=== PATIENT | female | born 1960 | race Caucasian/White ===

== ENCOUNTER 2017-06-19 22:22 | Inpatient (IN) | payer OTHER ==
[2017-06-19 22:54] LABS: ABNORMAL IP MESSAGE 1; HEMATOCRIT 36.1 % (37.0-47.0); HEMOGLOBIN 11.6 g/dl (12.0-16.0); MEAN CORPUSCULAR HEMOGLOBIN 30.9 pg (29.0-33.0); MEAN CORPUSCULAR HGB CONC 32.1 g/dl (32.0-37.0); MEAN PLATELET VOLUME 9.4 fl (7.4-10.4); PLATELET COUNT 335 10^3/UL (140-415); RED BLOOD COUNT 3.76 10^6/ul (4.20-5.40); RED CELL DISTRIBUTION WIDTH 14.1 % (11.5-14.5)
[2017-06-19 22:58] LABS: ADD MAN DIFF? YES; POSITIVE DIFF @See below
[2017-06-19] MEDS: SOD CHLORIDE 0.9% 2,170 ML IV (23:00)
[2017-06-19 23:29] LABS: AADO2 Arterial 361.9 mmHg (7.0-24.0); Allen Test ACCEPTAB; Arterial Base Excess -6.1 mmol/L (-3.0-3); Arterial Blood Gas Oxygen Sat 99.4 mmHG (95.0-98.0); Arterial COHb 0.3 % (0.0-3.0); Arterial Fraction of Oxyhgb 98.5 % (93.0-99.0); Arterial HCO3 20.7 mmol/L (22.0-26.0); Arterial MetHb 0.6 % (0.0-1.5); Arterial Total Hemglobin 12.3 g/dl (12.0-18.0); MODE VENT - AC; Site Right Brachial
[2017-06-19 23:40] LABS: BAND NEUTROPHILS #M 0.2 10^3/ul (0.0-0.6); BAND NEUTROPHILS % (M) 4 % (0-4); EOSINOPHILS % (M) 1 % (0-7); GIANT THROMBO% (M) 2 % (0-0); LYMPHOCYTES #M 2.2 10^3/ul (0.8-2.9); LYMPHOCYTES % (M) 32 % (15-51); METAMYELOCYTES #M 0.5 10^3/ul (0.0-0.0); METAMYELOCYTES %M 8 % (0-0); MONOCYTE #M 0.7 10^3/ul (0.3-0.9); MONOCYTES % (M) 11 % (0-11); MYELOCYTES #M 0.1 10^3/ul (0.0-0.0); MYELOCYTES % (M) 2 % (0-0); PLATELET ESTIMATE NORMAL; POLYCHROMASIA 3+ (0-0); REACTIVE LYMPHOCYTES #M 0.6 10^3/ul (0.0-0.0); REACTIVE LYMPHOCYTES% (M) 9 % (0-0); SEG NEUT #M 2.3 10^3/ul (1.6-7.5); SEGMENTED NEUTROPHILS (M) % 33 % (39-77); SMUDGE%M 6 % (0-0)
[2017-06-19 23:43] LABS: BASOPHIL # 0.1 10^3/ul (0.0-0.1); BASOPHILS % 1.5 % (0.0-2.0); EOSINOPHILS # 0.1 10^3/ul (0.0-0.5); EOSINOPHILS % 2.3 % (0.0-7.0); LYMPHOCYTES # 2.1 10^3/ul (0.8-2.9); LYMPHOCYTES % 35.2 % (15.0-51.0); MONOCYTE # 0.7 10^3/ul (0.3-0.9); MONOCYTES % 10.9 % (0.0-11.0); NEUTROPHIL # 2.1 10^3/ul (1.6-7.5); NEUTROPHILS % 34.4 % (39.0-77.0)
[2017-06-20 00:05] LABS: ALANINE AMINOTRANSFERASE 26 IU/L (13-69); ALBUMIN 3.5 g/dl (3.3-4.9); ALBUMIN/GLOBULIN RATIO 1.06; ALKALINE PHOSPHATASE 95 IU/L (42-121); ANION GAP 15 (8-16); ASPARTATE AMINO TRANSFERASE 45 IU/L (15-46); BILIRUBIN,INDIRECT 0.1 mg/dl (0-1.1); BILIRUBIN,TOTAL 0.1 mg/dl (0.2-1.3); BLOOD UREA NITROGEN 22 mg/dl (7-20); CALCIUM 8.7 mg/dl (8.4-10.2); CARBON DIOXIDE 26 mmol/L (21-31); CHLORIDE 106 mmol/L (97-110); CREATININE 1.31 mg/dl (0.44-1.00); GLUCOSE 146 mg/dl (70-220); POTASSIUM 4.8 mmol/L (3.5-5.1); SODIUM 142 mmol/L (135-144); TOTAL PROTEIN 6.8 g/dl (6.1-8.1)
[2017-06-20 00:13] LABS: LACTIC ACID 4.6 mmol/L (0.5-2.0)
[2017-06-20 00:17] LABS: TROPONIN-I 0.157 ng/ml (0.00-0.12)
[2017-06-20 00:25] LABS: INR 1.08; PROTIME 14.1 Sec (11.9-14.9); PT RATIO 1.1
[2017-06-20 00:29] LABS: ADD UMIC YES; UR ASCORBIC ACID NEGATIVE (NEGATIVE); UR BACTERIA FEW /HPF (NONE SEEN); UR BILIRUBIN (Dip) NEGATIVE (NEGATIVE); UR BLOOD (Dip) 2+ mg/dL (NEGATIVE); UR CLARITY CLOUDY (CLEAR); UR COLOR YELLOW (YELLOW); UR GLUCOSE (Dip) 1+ mg/dL (NEGATIVE); UR KETONES (Dip) NEGATIVE (NEGATIVE); UR LEUKOCYTE ESTERASE (Dip) NEGATIVE Leu/ul (NEGATIVE); UR NITRITE (Dip) NEGATIVE (NEGATIVE); UR RBC 1 /HPF (0-5); UR SPECIFIC GRAVITY (Dip) 1.012 (1.003-1.030); UR TOTAL PROTEIN (Dip) 2+ mg/dl (NEGATIVE); UR UROBILINOGEN (Dip) NEGATIVE (NEGATIVE); UR WBC 2 /HPF (0-5)
[2017-06-20] MEDS: ASPIRIN 300 MG SUPP PR (00:58)
[2017-06-20] MEDS: ACETAMINOPHEN 650 MG SUPP PR (00:59)
[2017-06-20] MEDS: MEROPENEM 500MG/50 ML (PMX) 50 ML IVPB (00:59)
[2017-06-20] MEDS: VANCOMYCIN 1 GM (PMX) 250 ML IVPB (01:00)
[2017-06-20 01:22] LABS: LACTIC ACID 3.9 mmol/L (0.5-2.0)
[2017-06-20] MEDS ORDERED: IPRATROPIUM (HFA) 12.9 GM INHALER INH ×2 (03:00→06:00)
[2017-06-20] MEDS ORDERED: ALBUTEROL HFA 8 GM INHALER INH ×2 (03:00→06:00)
[2017-06-20] MEDS ORDERED: GLUCAGON 1 MG INJ IM (03:10)
[2017-06-20] MEDS ORDERED: DEXTROSE 50% 50 ML SYRINGE IV (03:10)
[2017-06-20] MEDS ORDERED: GLUCOSE GEL 15 GRAM TUBE PO ×2 (03:10)
[2017-06-20] MEDS ORDERED: GLUCOSE GEL 15 GRAM TUBE BUCCAL (03:10)
[2017-06-20] MEDS: SOD CHLORIDE 0.9% 1,000 ML IV (03:13)
[2017-06-20] MEDS ORDERED: VANCOMYCIN IV PER PHARMACY XX (03:30)
[2017-06-20 04:59] LABS: LACTIC ACID 1.3 mmol/L (0.5-2.0)
[2017-06-20] MEDS ORDERED: SOD CHLORIDE 0.9% 1,000 ML IV (05:39)
[2017-06-20] MEDS ORDERED: ACETAMINOPHEN 650MG/20.3ML CUP PO (06:00)
[2017-06-20] MEDS ORDERED: PANTOPRAZOLE 40 MG INJ IV (06:00)
[2017-06-20 07:20] LABS: ADD MAN DIFF? NO
[2017-06-20 07:28] LABS: WHITE BLOOD COUNT 13.8 10^3/ul (4.8-10.8)
[2017-06-20 07:28] LABS: BASOPHILS % 0.1 % (0.0-2.0); EOSINOPHILS % 0.3 % (0.0-7.0); HEMATOCRIT 39.4 % (37.0-47.0); HEMOGLOBIN 12.5 g/dl (12.0-16.0); LYMPHOCYTES # 0.7 10^3/ul (0.8-2.9); LYMPHOCYTES % 5.3 % (15.0-51.0); MEAN CORPUSCULAR HEMOGLOBIN 30.6 pg (29.0-33.0); MEAN CORPUSCULAR HGB CONC 31.7 g/dl (32.0-37.0); MEAN CORPUSCULAR VOLUME 96.3 fl (82.0-101.0); MEAN PLATELET VOLUME 9.3 fl (7.4-10.4); MONOCYTE # 0.8 10^3/ul (0.3-0.9); MONOCYTES % 5.5 % (0.0-11.0); NEUTROPHILS % 87.3 % (39.0-77.0); PLATELET COUNT 241 10^3/UL (140-415); RED BLOOD COUNT 4.09 10^6/ul (4.20-5.40); RED CELL DISTRIBUTION WIDTH 14.6 % (11.5-14.5)
[2017-06-20 07:44] LABS: PROTIME 15.4 Sec (11.9-14.9); PT RATIO 1.2
[2017-06-20 07:45] LABS: PARTIAL THROMBOPLASTIN TIME 29.6 Sec (25.0-35.0)
[2017-06-20 07:47] LABS: ALANINE AMINOTRANSFERASE 58 IU/L (13-69); ALBUMIN 3.4 g/dl (3.3-4.9); ALBUMIN/GLOBULIN RATIO 1.09; ALKALINE PHOSPHATASE 129 IU/L (42-121); ANION GAP 16 (8-16); ASPARTATE AMINO TRANSFERASE 121 IU/L (15-46); BILIRUBIN,INDIRECT 0.3 mg/dl (0-1.1); BILIRUBIN,TOTAL 0.3 mg/dl (0.2-1.3); BLOOD UREA NITROGEN 32 mg/dl (7-20); CALCIUM 8.7 mg/dl (8.4-10.2); CARBON DIOXIDE 20 mmol/L (21-31); CHLORIDE 114 mmol/L (97-110); CREATININE 1.56 mg/dl (0.44-1.00); MAGNESIUM 1.3 mg/dl (1.7-2.5); POTASSIUM 4.2 mmol/L (3.5-5.1); SODIUM 146 mmol/L (135-144); TOTAL PROTEIN 6.5 g/dl (6.1-8.1)
[2017-06-20 07:51] LABS: GLUCOSE 25 mg/dl (70-220)
[2017-06-20] MEDS: INSULIN ASPART [NOVOLOG] 3 ML PEN SC ×5 (08:00→22:30)
[2017-06-20] MEDS: PANTOPRAZOLE 40 MG INJ IV (08:02)
[2017-06-20] MEDS: metroNIDAZOLE 500 MG/NS (PMX) 100 ML IVPB ×3 (08:02→22:42)
[2017-06-20] MEDS: PIPER-TAZO 2.25 GM (PMX) 50 ML IVPB ×3 (08:02→18:32)
[2017-06-20] MEDS: DEXTROSE 50% 50 ML SYRINGE IV (08:03)
[2017-06-20 08:06] LABS: CK INDEX 0.4; CREATINE KINASE 2843 IU/L (23-200)
[2017-06-20 08:11] LABS: HEMOGLOBIN A1C 5.2 % (0-5.9); LACTIC ACID 3.4 mmol/L (0.5-2.0)
[2017-06-20 08:12] LABS: TROPONIN-I 0.586 ng/ml (0.00-0.12)
[2017-06-20] MEDS: NORepinephrine 8MG/250 ML (PMX 250 ML IV ×2 (08:35→14:23)
[2017-06-20] MEDS: DEXTROSE 5%-0.45% NACL 1,000 ML IV ×2 (08:44→22:36)
[2017-06-20] MEDS: HEPARIN 1000 UNITS/ML 10 ML INJ IV (09:02)
[2017-06-20 09:15] LABS: GLUCOSE 111 mg/dl (70-220)
[2017-06-20] MEDS: HEPARIN 25000 UNITS/250 ML 250 ML IV (09:39)
[2017-06-20 09:53] LABS: CHOLESTEROL 218 mg/dl (100-200)
[2017-06-20 09:53] LABS: CHOL/HDL RATIO 3.4 RATIO; HDL CHOLESTEROL 63 mg/dl (37-92); LDL CHOLESTEROL,CALCULATED 140 mg/dl; TRIGLYCERIDES 76 mg/dl (0-149)
[2017-06-20 09:56] LABS: LACTIC ACID 5.1 mmol/L (0.5-2.0)
[2017-06-20] MEDS: LEVETIRACETAM 1000 MG (PMX) 100 ML IVPB ×2 (10:23→22:37)
[2017-06-20] MEDS: MAGNESIUM SULFATE 3 GM in DEXTROSE 5% 100 ML IVPB (11:24)
[2017-06-20] MEDS ORDERED: HEPARIN 1000 UNITS/ML 10 ML INJ IV (12:00)
[2017-06-20 12:02] LABS: HIV 1&2 ANTIBODY NEGATIVE (NEGATIVE)
[2017-06-20 12:08] LABS: AADO2 Arterial 98.2 mmHg (7.0-24.0); Allen Test ACCEPTAB; Arterial Base Excess -8.9 mmol/L (-3.0-3); Arterial Blood Gas Oxygen Sat 95.7 mmHG (95.0-98.0); Arterial COHb 0.3 % (0.0-3.0); Arterial HCO3 15.6 mmol/L (22.0-26.0); Arterial MetHb 0.4 % (0.0-1.5); Arterial Total Hemglobin 13.1 g/dl (12.0-18.0); Arterial pCO2 29.7 mmhg (35-45); MODE VENT - AC; Site Right Brachial
[2017-06-20] MEDS: CIPROFLOXACIN HCL OTIC DROP 0.25 ML BOTH EARS ×2 (13:03→22:39)
[2017-06-20] MEDS: VANCOMYCIN 1 GM 250 ML IVPB (13:31)
[2017-06-20 14:02] LABS: ADD UMIC YES; UR AMORPHOUS CRYSTAL FEW /HPF (NONE SEEN); UR ASCORBIC ACID NEGATIVE (NEGATIVE); UR BACTERIA FEW /HPF (NONE SEEN); UR BILIRUBIN (Dip) NEGATIVE (NEGATIVE); UR BLOOD (Dip) 2+ mg/dL (NEGATIVE); UR CALCIUM OXALATE CRYSTAL FEW /HPF (NONE SEEN); UR CLARITY CLOUDY (CLEAR); UR COLOR AMBER (YELLOW); UR GLUCOSE (Dip) NEGATIVE (NEGATIVE); UR KETONES (Dip) NEGATIVE (NEGATIVE); UR LEUKOCYTE ESTERASE (Dip) NEGATIVE Leu/ul (NEGATIVE); UR NITRITE (Dip) NEGATIVE (NEGATIVE); UR RBC 0 /HPF (0-5); UR SPECIFIC GRAVITY (Dip) 1.017 (1.003-1.030); UR SQUAMOUS EPITHELIAL CELL FEW /HPF (FEW); UR TOTAL PROTEIN (Dip) 1+ mg/dl (NEGATIVE); UR UROBILINOGEN (Dip) NEGATIVE (NEGATIVE); UR WBC 3 /HPF (0-5)
[2017-06-20 14:12] LABS: CREATININE,URINE RANDOM 158.31 mg/dl (20-320)
[2017-06-20 14:12] LABS: SODIUM,URINE RANDOM 32 mmol/L (30-90)
[2017-06-20 14:56] LABS: LACTIC ACID 4.5 mmol/L (0.5-2.0)
[2017-06-20 14:58] LABS: RAPID PLASMA REAGIN NONREACTIVE (NR)
[2017-06-20 15:03] LABS: TROPONIN-I 0.726 ng/ml (0.00-0.12)
[2017-06-20 15:09] LABS: CK INDEX 0.3; CREATINE KINASE 5970 IU/L (23-200)
[2017-06-20] MEDS: ACETAMINOPHEN 650MG/20.3ML CUP PO (16:27)
[2017-06-20 17:13] LABS: PARTIAL THROMBOPLASTIN TIME 98.6 Sec (25.0-35.0)
[2017-06-20] MEDS: ATORVASTATIN 40 MG TAB PO (22:39)
[2017-06-20] MEDS: PROPOFOL 100 ML IV ×2 (23:30)
[2017-06-21 00:46] LABS: CK INDEX 0.3; CREATINE KINASE 5416 IU/L (23-200)
[2017-06-21 00:47] LABS: PARTIAL THROMBOPLASTIN TIME 108.7 Sec (25.0-35.0)
[2017-06-21] MEDS: PIPER-TAZO 2.25 GM (PMX) 50 ML IVPB ×4 (01:27→18:10)
[2017-06-21] MEDS: VANCOMYCIN 1 GM 250 ML IVPB ×2 (01:27→13:18)
[2017-06-21] MEDS: INSULIN ASPART [NOVOLOG] 3 ML PEN SC ×6 (01:38→21:00)
[2017-06-21] MEDS: ACCU-CHEK XX (02:00)
[2017-06-21] MEDS: DEXTROSE 5%-0.45% NACL 1,000 ML IV ×2 (05:00→12:25)
[2017-06-21] MEDS: metroNIDAZOLE 500 MG/NS (PMX) 100 ML IVPB ×3 (05:30→21:34)
[2017-06-21] MEDS: PANTOPRAZOLE 40 MG INJ IV (05:30)
[2017-06-21 05:50] LABS: ADD MAN DIFF? NO
[2017-06-21 06:06] LABS: BASOPHILS % 0.2 % (0.0-2.0); HEMATOCRIT 33.9 % (37.0-47.0); HEMOGLOBIN 10.7 g/dl (12.0-16.0); LYMPHOCYTES # 1.1 10^3/ul (0.8-2.9); LYMPHOCYTES % 5.9 % (15.0-51.0); MEAN CORPUSCULAR HEMOGLOBIN 30.3 pg (29.0-33.0); MEAN CORPUSCULAR HGB CONC 31.6 g/dl (32.0-37.0); MEAN PLATELET VOLUME 10.1 fl (7.4-10.4); MONOCYTE # 0.9 10^3/ul (0.3-0.9); MONOCYTES % 4.9 % (0.0-11.0); NEUTROPHIL # 15.8 10^3/ul (1.6-7.5); NEUTROPHILS % 87.4 % (39.0-77.0); RED BLOOD COUNT 3.53 10^6/ul (4.20-5.40); RED CELL DISTRIBUTION WIDTH 14.7 % (11.5-14.5)
[2017-06-21 06:06] LABS: WHITE BLOOD COUNT 18.1 10^3/ul (4.8-10.8)
[2017-06-21 06:11] LABS: PLATELET COUNT 122 10^3/UL (140-415); POSITIVE DIFF @See below
[2017-06-21 06:19] LABS: ALANINE AMINOTRANSFERASE 248 IU/L (13-69); ALBUMIN 2.5 g/dl (3.3-4.9); ALBUMIN/GLOBULIN RATIO 0.96; ALKALINE PHOSPHATASE 105 IU/L (42-121); ANION GAP 10 (8-16); ASPARTATE AMINO TRANSFERASE 338 IU/L (15-46); BILIRUBIN,INDIRECT 0.4 mg/dl (0-1.1); BILIRUBIN,TOTAL 0.4 mg/dl (0.2-1.3); BLOOD UREA NITROGEN 36 mg/dl (7-20); CARBON DIOXIDE 21 mmol/L (21-31); CHLORIDE 117 mmol/L (97-110); CREATININE 1.38 mg/dl (0.44-1.00); GLUCOSE 175 mg/dl (70-220); MAGNESIUM 2.1 mg/dl (1.7-2.5); POTASSIUM 3.7 mmol/L (3.5-5.1); SODIUM 144 mmol/L (135-144); TOTAL PROTEIN 5.1 g/dl (6.1-8.1)
[2017-06-21 06:27] LABS: PARTIAL THROMBOPLASTIN TIME 79.6 Sec (25.0-35.0)
[2017-06-21 06:53] LABS: PHOSPHORUS 3.9 mg/dl (2.5-4.9)
[2017-06-21 09:04] LABS: AADO2 Arterial 105.5 mmHg (7.0-24.0); Allen Test ACCEPTAB; Arterial COHb 0.2 % (0.0-3.0); Arterial Fraction of Oxyhgb 94.5 % (93.0-99.0); Arterial HCO3 16.7 mmol/L (22.0-26.0); Arterial MetHb 0.3 % (0.0-1.5); Arterial pCO2 28.2 mmhg (35-45); Blood Gas Low PEEP Setting 0 cmH2O; MODE VENT - AC; Site Left Radial
[2017-06-21] MEDS: LEVETIRACETAM 1000 MG (PMX) 100 ML IVPB ×2 (09:39→21:31)
[2017-06-21] MEDS: ASPIRIN 81 MG TAB PO (09:39)
[2017-06-21] MEDS: CIPROFLOXACIN HCL OTIC DROP 0.25 ML BOTH EARS ×2 (09:39→21:31)
[2017-06-21 12:44] LABS: PARTIAL THROMBOPLASTIN TIME 48.6 Sec (25.0-35.0)
[2017-06-21] MEDS: PROPOFOL 100 ML IV ×2 (13:18→23:30)
[2017-06-21 13:23] LABS: VANCOMYCIN,TROUGH 15.6 ug/ml (10.0-20.0)
[2017-06-21] MEDS: HEPARIN 25000 UNITS/250 ML 250 ML IV (18:10)
[2017-06-21] MEDS: ACETAMINOPHEN 650MG/20.3ML CUP PO (23:28)
[2017-06-22] MEDS: INSULIN ASPART [NOVOLOG] 3 ML PEN SC ×6 (01:00→20:59)
[2017-06-22] MEDS: PIPER-TAZO 2.25 GM (PMX) 50 ML IVPB ×3 (01:20→12:36)
[2017-06-22] MEDS: DEXTROSE 5%-0.45% NACL 1,000 ML IV ×3 (01:20→20:49)
[2017-06-22] MEDS: VANCOMYCIN 1 GM 250 ML IVPB ×2 (01:21→12:37)
[2017-06-22 02:05] LABS: PARTIAL THROMBOPLASTIN TIME 70.6 Sec (25.0-35.0)
[2017-06-22] MEDS: ACCU-CHEK XX (02:05)
[2017-06-22 05:39] LABS: ADD MAN DIFF? NO
[2017-06-22 05:45] LABS: WHITE BLOOD COUNT 12.5 10^3/ul (4.8-10.8)
[2017-06-22 05:45] LABS: ABNORMAL IP MESSAGE 1; BASOPHILS % 0.2 % (0.0-2.0); HEMATOCRIT 25.7 % (37.0-47.0); HEMOGLOBIN 8.2 g/dl (12.0-16.0); LYMPHOCYTES # 0.8 10^3/ul (0.8-2.9); LYMPHOCYTES % 6.7 % (15.0-51.0); MEAN CORPUSCULAR HEMOGLOBIN 31.1 pg (29.0-33.0); MEAN CORPUSCULAR HGB CONC 31.9 g/dl (32.0-37.0); MEAN CORPUSCULAR VOLUME 97.3 fl (82.0-101.0); MEAN PLATELET VOLUME 10.8 fl (7.4-10.4); MONOCYTE # 0.6 10^3/ul (0.3-0.9); MONOCYTES % 5.1 % (0.0-11.0); NEUTROPHIL # 10.9 10^3/ul (1.6-7.5); NEUTROPHILS % 87.3 % (39.0-77.0); PLATELET COUNT 82 10^3/UL (140-415); RED BLOOD COUNT 2.64 10^6/ul (4.20-5.40); RED CELL DISTRIBUTION WIDTH 14.5 % (11.5-14.5)
[2017-06-22 05:49] LABS: POSITIVE DIFF @See below
[2017-06-22 06:02] LABS: LACTIC ACID 0.9 mmol/L (0.5-2.0)
[2017-06-22 06:04] LABS: ALANINE AMINOTRANSFERASE 362 IU/L (13-69); ALBUMIN 2.3 g/dl (3.3-4.9); ALBUMIN/GLOBULIN RATIO 0.92; ALKALINE PHOSPHATASE 81 IU/L (42-121); ANION GAP 8 (8-16); ASPARTATE AMINO TRANSFERASE 318 IU/L (15-46); BILIRUBIN,INDIRECT 0.9 mg/dl (0-1.1); BILIRUBIN,TOTAL 1.6 mg/dl (0.2-1.3); BLOOD UREA NITROGEN 29 mg/dl (7-20); CALCIUM 7.9 mg/dl (8.4-10.2); CARBON DIOXIDE 24 mmol/L (21-31); CHLORIDE 114 mmol/L (97-110); CREATININE 1.05 mg/dl (0.44-1.00); GLUCOSE 132 mg/dl (70-220); MAGNESIUM 1.9 mg/dl (1.7-2.5); POTASSIUM 3.4 mmol/L (3.5-5.1); SODIUM 143 mmol/L (135-144); TOTAL PROTEIN 4.8 g/dl (6.1-8.1)
[2017-06-22] MEDS: PANTOPRAZOLE 40 MG INJ IV (06:08)
[2017-06-22] MEDS: metroNIDAZOLE 500 MG/NS (PMX) 100 ML IVPB ×3 (06:08→21:41)
[2017-06-22 06:23] LABS: CREATINE KINASE 900 IU/L (23-200)
[2017-06-22 06:34] LABS: CK INDEX 0.7; CK-MB 5.93 ng/ml (0.0-2.4)
[2017-06-22 06:59] LABS: PHOSPHORUS 2.5 mg/dl (2.5-4.9)
[2017-06-22 08:21] LABS: PARTIAL THROMBOPLASTIN TIME 69.7 Sec (25.0-35.0)
[2017-06-22] MEDS: POTASSIUM CHLORIDE 100 ML IVPB ×3 (08:53→11:04)
[2017-06-22] MEDS: LEVETIRACETAM 1000 MG (PMX) 100 ML IVPB ×2 (08:58→21:38)
[2017-06-22] MEDS: CIPROFLOXACIN HCL OTIC DROP 0.25 ML BOTH EARS ×2 (08:59→20:49)
[2017-06-22] MEDS ORDERED: POTASSIUM CHLORIDE 50 ML IVPB (09:00)
[2017-06-22] MEDS: ASPIRIN 81 MG TAB PO (09:00)
[2017-06-22 11:13] LABS: Allen Test ACCEPTAB; Arterial Base Excess -2.7 mmol/L (-3.0-3); Arterial Blood Gas Oxygen Sat 93.8 mmHG (95.0-98.0); Arterial COHb 0.7 % (0.0-3.0); Arterial Fraction of Oxyhgb 92.9 % (93.0-99.0); Arterial HCO3 21.8 mmol/L (22.0-26.0); Arterial MetHb 0.3 % (0.0-1.5); Arterial Total Hemglobin 9.5 g/dl (12.0-18.0); Arterial pCO2 36.5 mmhg (35-45); MODE ROOM AIR; Site Left Radial
[2017-06-22 16:11] LABS: HEMATOCRIT 25.7 % (37.0-47.0); HEMOGLOBIN 8.1 g/dl (12.0-16.0)
[2017-06-22 16:31] LABS: PARTIAL THROMBOPLASTIN TIME 43.8 Sec (25.0-35.0)
[2017-06-22] MEDS: ACETAMINOPHEN 650MG/20.3ML CUP PO (17:33)
[2017-06-22] MEDS: PIPER-TAZO 3.375 GM IV (PMX) 100 ML IVPB ×2 (18:00→23:46)
[2017-06-22] MEDS: LORAZEPAM 2 MG INJ IV ×2 (18:11→20:48)
[2017-06-23] MEDS: VANCOMYCIN 1 GM 250 ML IVPB ×2 (01:31→13:00)
[2017-06-23] MEDS: ACCU-CHEK XX (01:36)
[2017-06-23] MEDS ORDERED: PENDING SANTYL ORDER FOR WOUND CARE XX ×2 (03:00)
[2017-06-23] MEDS: metroNIDAZOLE 500 MG/NS (PMX) 100 ML IVPB (05:19)
[2017-06-23] MEDS: PANTOPRAZOLE 40 MG INJ IV (05:19)
[2017-06-23] MEDS: PIPER-TAZO 3.375 GM IV (PMX) 100 ML IVPB ×2 (05:20→12:01)
[2017-06-23] MEDS: ACETAMINOPHEN 650MG/20.3ML CUP PO (06:01)
[2017-06-23] MEDS: DEXTROSE 5%-0.45% NACL 1,000 ML IV (06:11)
[2017-06-23 07:41] LABS: ADD MAN DIFF? NO
[2017-06-23 07:49] LABS: BASOPHILS % 0.3 % (0.0-2.0); EOSINOPHILS # 0.1 10^3/ul (0.0-0.5); EOSINOPHILS % 1.3 % (0.0-7.0); HEMATOCRIT 24.1 % (37.0-47.0); HEMOGLOBIN 7.5 g/dl (12.0-16.0); LYMPHOCYTES # 0.7 10^3/ul (0.8-2.9); LYMPHOCYTES % 7.9 % (15.0-51.0); MEAN CORPUSCULAR HEMOGLOBIN 30.2 pg (29.0-33.0); MEAN CORPUSCULAR HGB CONC 31.1 g/dl (32.0-37.0); MEAN CORPUSCULAR VOLUME 97.2 fl (82.0-101.0); MEAN PLATELET VOLUME 10.3 fl (7.4-10.4); MONOCYTE # 0.6 10^3/ul (0.3-0.9); NEUTROPHIL # 7.7 10^3/ul (1.6-7.5); NEUTROPHILS % 82.9 % (39.0-77.0); PLATELET COUNT 100 10^3/UL (140-415); RED BLOOD COUNT 2.48 10^6/ul (4.20-5.40); RED CELL DISTRIBUTION WIDTH 14.4 % (11.5-14.5)
[2017-06-23 07:49] LABS: WHITE BLOOD COUNT 9.3 10^3/ul (4.8-10.8)
[2017-06-23] MEDS: INSULIN ASPART [NOVOLOG] 3 ML PEN SC ×4 (07:55→20:53)
[2017-06-23 08:04] LABS: PHOSPHORUS 2.5 mg/dl (2.5-4.9)
[2017-06-23 08:05] LABS: ALANINE AMINOTRANSFERASE 347 IU/L (13-69); ALBUMIN 2.2 g/dl (3.3-4.9); ALBUMIN/GLOBULIN RATIO 0.84; ALKALINE PHOSPHATASE 73 IU/L (42-121); ANION GAP 8 (8-16); ASPARTATE AMINO TRANSFERASE 189 IU/L (15-46); BILIRUBIN,INDIRECT 0.6 mg/dl (0-1.1); BLOOD UREA NITROGEN 22 mg/dl (7-20); CALCIUM 8.2 mg/dl (8.4-10.2); CARBON DIOXIDE 24 mmol/L (21-31); CHLORIDE 118 mmol/L (97-110); CREATININE 0.87 mg/dl (0.44-1.00); GLUCOSE 101 mg/dl (70-220); MAGNESIUM 1.7 mg/dl (1.7-2.5); POTASSIUM 3.7 mmol/L (3.5-5.1); SODIUM 146 mmol/L (135-144); TOTAL PROTEIN 4.8 g/dl (6.1-8.1)
[2017-06-23] MEDS: ASPIRIN 81 MG TAB PO (09:06)
[2017-06-23] MEDS: CIPROFLOXACIN HCL OTIC DROP 0.25 ML BOTH EARS ×2 (09:07→22:16)
[2017-06-23] MEDS: LEVETIRACETAM 1000 MG (PMX) 100 ML IVPB ×2 (09:43→20:49)
[2017-06-23 11:10] LABS: IRON 191 ug/dl (35-150)
[2017-06-23 11:19] LABS: % IRON SATURATION 69 % SAT (22-52); TOTAL IRON BINDING CAPACITY 277 ug/dl (241-421)
[2017-06-23 15:31] LABS: CREATININE, RANDOM URINE 170 mg/dL (20-320); MICROALBUMIN 12.5 mg/dL; MICROALBUMIN/CREATININE RATIO 74 (<30)
[2017-06-23] MEDS: CEFTRIAXONE 1 GM/50 ML (PMX) 50 ML IVPB (16:29)
[2017-06-23] MEDS: LORAZEPAM 2 MG INJ IV (17:45)
[2017-06-23] MEDS: OLANZAPINE (ODT) 5 MG TAB PO (20:49)
[2017-06-24] MEDS: LORAZEPAM 2 MG INJ IV (00:17)
[2017-06-24] MEDS: DEXTROSE 5%-0.45% NACL 1,000 ML IV ×2 (01:15→16:49)
[2017-06-24] MEDS: ACCU-CHEK XX (02:00)
[2017-06-24] MEDS: PANTOPRAZOLE 40 MG INJ IV (06:00)
[2017-06-24] MEDS: INSULIN ASPART [NOVOLOG] 3 ML PEN SC ×4 (07:55→21:00)
[2017-06-24 08:40] LABS: ADD MAN DIFF? NO
[2017-06-24 08:53] LABS: BASOPHILS % 0.4 % (0.0-2.0); EOSINOPHILS # 0.4 10^3/ul (0.0-0.5); EOSINOPHILS % 3.4 % (0.0-7.0); HEMATOCRIT 25.6 % (37.0-47.0); HEMOGLOBIN 8.2 g/dl (12.0-16.0); LYMPHOCYTES # 1.1 10^3/ul (0.8-2.9); LYMPHOCYTES % 9.7 % (15.0-51.0); MEAN CORPUSCULAR HEMOGLOBIN 30.6 pg (29.0-33.0); MEAN CORPUSCULAR VOLUME 95.5 fl (82.0-101.0); MEAN PLATELET VOLUME 10.1 fl (7.4-10.4); MONOCYTE # 0.8 10^3/ul (0.3-0.9); MONOCYTES % 7.2 % (0.0-11.0); NEUTROPHIL # 8.3 10^3/ul (1.6-7.5); NEUTROPHILS % 75.6 % (39.0-77.0); NUCLEATED RED BLOOD CELLS% 0.4 /100WBC (0.0-0.0); PLATELET COUNT 145 10^3/UL (140-415); RED BLOOD COUNT 2.68 10^6/ul (4.20-5.40); RED CELL DISTRIBUTION WIDTH 14.2 % (11.5-14.5)
[2017-06-24] MEDS: OLANZAPINE (ODT) 5 MG TAB PO ×2 (09:37→21:44)
[2017-06-24] MEDS: LEVETIRACETAM 1000 MG (PMX) 100 ML IVPB ×2 (09:37→21:47)
[2017-06-24] MEDS: ASPIRIN 81 MG TAB PO (09:37)
[2017-06-24] MEDS: CIPROFLOXACIN HCL OTIC DROP 0.25 ML BOTH EARS ×2 (09:37→21:44)
[2017-06-24 10:22] LABS: ALANINE AMINOTRANSFERASE 322 IU/L (13-69); ALBUMIN 2.5 g/dl (3.3-4.9); ALBUMIN/GLOBULIN RATIO 0.92; ALKALINE PHOSPHATASE 86 IU/L (42-121); ANION GAP 7 (8-16); ASPARTATE AMINO TRANSFERASE 130 IU/L (15-46); BILIRUBIN,INDIRECT 0.5 mg/dl (0-1.1); BILIRUBIN,TOTAL 0.5 mg/dl (0.2-1.3); BLOOD UREA NITROGEN 12 mg/dl (7-20); CALCIUM 8.6 mg/dl (8.4-10.2); CARBON DIOXIDE 26 mmol/L (21-31); CHLORIDE 114 mmol/L (97-110); GLUCOSE 95 mg/dl (70-220); MAGNESIUM 1.5 mg/dl (1.7-2.5); POTASSIUM 3.4 mmol/L (3.5-5.1); SODIUM 144 mmol/L (135-144); TOTAL PROTEIN 5.2 g/dl (6.1-8.1)
[2017-06-24] MEDS ORDERED: VANCOMYCIN IV PER PHARMACY XX (15:00)
[2017-06-24] MEDS: POTASSIUM CHLORIDE (SR) 20 MEQ TAB PO (16:49)
[2017-06-24] MEDS: MAGNESIUM SULFATE 2 GM/50 ML 50 ML IVPB (16:49)
[2017-06-24] MEDS: VANCOMYCIN 750 MG in DEXTROSE 5% 150 ML IVPB (17:53)
[2017-06-24] MEDS: ACETAMINOPHEN 650MG/20.3ML CUP PO (21:44)
[2017-06-24] MEDS: PIPER-TAZO 3.375 GM IV (PMX) 100 ML IVPB (21:44)
[2017-06-25] MEDS: VANCOMYCIN 750 MG in DEXTROSE 5% 150 ML IVPB ×3 (01:09→17:23)
[2017-06-25] MEDS: ACCU-CHEK XX (01:10)
[2017-06-25] MEDS: PANTOPRAZOLE 40 MG INJ IV (05:09)
[2017-06-25] MEDS: PIPER-TAZO 3.375 GM IV (PMX) 100 ML IVPB ×3 (05:11→23:03)
[2017-06-25] MEDS: INSULIN ASPART [NOVOLOG] 3 ML PEN SC ×4 (07:55→22:17)
[2017-06-25 08:22] LABS: WHITE BLOOD COUNT 9.5 10^3/ul (4.8-10.8)
[2017-06-25 08:22] LABS: ABNORMAL IP MESSAGE 1; HEMATOCRIT 24.9 % (37.0-47.0); HEMOGLOBIN 7.8 g/dl (12.0-16.0); MEAN CORPUSCULAR HEMOGLOBIN 30.2 pg (29.0-33.0); MEAN CORPUSCULAR HGB CONC 31.3 g/dl (32.0-37.0); MEAN CORPUSCULAR VOLUME 96.5 fl (82.0-101.0); MEAN PLATELET VOLUME 10.4 fl (7.4-10.4); NUCLEATED RED BLOOD CELLS% 1.1 /100WBC (0.0-0.0); PLATELET COUNT 158 10^3/UL (140-415); RED BLOOD COUNT 2.58 10^6/ul (4.20-5.40); RED CELL DISTRIBUTION WIDTH 14.6 % (11.5-14.5)
[2017-06-25 08:27] LABS: ADD MAN DIFF? YES; POSITIVE DIFF @See below
[2017-06-25] MEDS: CIPROFLOXACIN HCL OTIC DROP 0.25 ML BOTH EARS ×2 (08:31→22:18)
[2017-06-25] MEDS: ASPIRIN 81 MG TAB PO (08:32)
[2017-06-25] MEDS: OLANZAPINE (ODT) 5 MG TAB PO ×2 (08:32→22:17)
[2017-06-25] MEDS: LEVETIRACETAM 1000 MG (PMX) 100 ML IVPB ×2 (08:34→22:17)
[2017-06-25 08:43] LABS: ANION GAP 12 (8-16); BLOOD UREA NITROGEN 12 mg/dl (7-20); CALCIUM 8.3 mg/dl (8.4-10.2); CARBON DIOXIDE 26 mmol/L (21-31); CHLORIDE 112 mmol/L (97-110); CREATININE 0.79 mg/dl (0.44-1.00); GLUCOSE 118 mg/dl (70-220); POTASSIUM 3.6 mmol/L (3.5-5.1); SODIUM 146 mmol/L (135-144)
[2017-06-25 09:26] LABS: BAND NEUTROPHILS #M 0.5 10^3/ul (0.0-0.6); BAND NEUTROPHILS % (M) 6 % (0-4); EOSINOPHILS % (M) 13 % (0-7); ERYTHROBLAST% (NRBC) (M) 2 % (0-0); LYMPHOCYTES #M 1.2 10^3/ul (0.8-2.9); LYMPHOCYTES % (M) 13 % (15-51); METAMYELOCYTES %M 1 % (0-0); MONOCYTE #M 0.1 10^3/ul (0.3-0.9); MONOCYTES % (M) 2 % (0-11); MYELOCYTES % (M) 1 % (0-0); PLATELET ESTIMATE NORMAL; POLYCHROMASIA 1+ (0-0); SEG NEUT #M 6.2 10^3/ul (1.6-7.5); SEGMENTED NEUTROPHILS (M) % 65 % (39-77)
[2017-06-25 16:32] LABS: VANCOMYCIN,TROUGH 10.1 ug/ml (10.0-20.0)
[2017-06-26] MEDS ORDERED: VANCOMYCIN 1 GM 250 ML IVPB (01:00)
[2017-06-26] MEDS: ACCU-CHEK XX (02:00)
[2017-06-26 06:26] LABS: ANION GAP 7 (8-16); BLOOD UREA NITROGEN 11 mg/dl (7-20); CALCIUM 8.5 mg/dl (8.4-10.2); CARBON DIOXIDE 31 mmol/L (21-31); CHLORIDE 110 mmol/L (97-110); CREATININE 0.77 mg/dl (0.44-1.00); GLUCOSE 92 mg/dl (70-220); MAGNESIUM 1.6 mg/dl (1.7-2.5); PHOSPHORUS 3.7 mg/dl (2.5-4.9); POTASSIUM 3.8 mmol/L (3.5-5.1); SODIUM 144 mmol/L (135-144)
[2017-06-26] MEDS: PIPER-TAZO 3.375 GM IV (PMX) 100 ML IVPB ×2 (06:37→15:35)
[2017-06-26] MEDS: PANTOPRAZOLE 40 MG INJ IV (06:38)
[2017-06-26] MEDS: INSULIN ASPART [NOVOLOG] 3 ML PEN SC ×3 (08:15→18:04)
[2017-06-26] MEDS: LEVETIRACETAM 1000 MG (PMX) 100 ML IVPB (10:26)
[2017-06-26] MEDS: MAGNESIUM SULFATE 2 GM/50 ML 50 ML IVPB (10:26)
[2017-06-26] MEDS: ASPIRIN 81 MG TAB PO (10:28)
[2017-06-26] MEDS: OLANZAPINE (ODT) 5 MG TAB PO (10:28)
[2017-06-26] MEDS: CIPROFLOXACIN HCL OTIC DROP 0.25 ML BOTH EARS (10:29)
== END 2017-06-26 18:40 | disposition hospice, inpatient (51) | DRG 871 ==
LOC: TEL 06-20 05:47 → E/R 22:22 → MS2 06-25 20:13 → ICU 06-20 02:58
PROVIDERS: Family Medicine
PROC: 0BH17EZ Insertion of Endotracheal Airway into Trachea, Via Natural or Artificial Opening (ICD-10-PCS; principal; 2017-06-19)
PROC: 5A1945Z Respiratory Ventilation, 24-96 Consecutive Hours (ICD-10-PCS; 2017-06-19)
DX: A41.9 Sepsis, unspecified organism (principal); J96.01 Acute respiratory failure with hypoxia; R65.21 Severe sepsis with septic shock; I21.A1 Myocardial infarction type 2; J69.0 Pneumonitis due to inhalation of food and vomit; N17.0 Acute kidney failure with tubular necrosis; G92 Toxic encephalopathy; I50.30 Unspecified diastolic (congestive) heart failure; E87.2 Acidosis; E87.0 Hyperosmolality and hypernatremia; E87.4 Mixed disorder of acid-base balance; H66.90 Otitis media, unspecified, unspecified ear; G40.909 Epilepsy, unspecified, not intractable, without status epilepticus; I11.0 Hypertensive heart disease with heart failure; I25.10 Atherosclerotic heart disease of native coronary artery without angina pectoris; E83.42 Hypomagnesemia; R19.7 Diarrhea, unspecified; E78.5 Hyperlipidemia, unspecified; D63.8 Anemia in other chronic diseases classified elsewhere; Z86.73 Personal history of transient ischemic attack (TIA), and cerebral infarction without residual deficits; E87.6 Hypokalemia
CPT/HCPCS: 31500; 36415; 36600; 70450; 71045; 72125; 73510; 76775; 80048; 80053; 80061; 80202; 81001; 81003; 82043; 82550; 82553; 82803; 82947; 82962; 83036; 83540; 83605; 83735; 84100; 84155; 84300; 84443; 84484; 85014; 85018; 85025; 85610; 85730; 86592; 86703; 87040; 87045; 87075; 87081; 87086; 92610; 93005; 93306; 94002; 94003; 94770; 96374; 96375; 97110; 97116; 97163; 97530; 99291-25